=== PATIENT | male | born 1945 | race Caucasian/White ===

== ENCOUNTER → 2020-07-19 12:48 | Outpatient (CLI) | payer MEDICARE, SELFPAY ==
--- NOTE | 2020-07-19 | CA_ITS ---
APPROVED REPORT EXAM: Comprehensive 2D, Doppler, and color-flow Echocardiogram Cylinder Checker: Leann Redman CRT Ht: 130 ft 10 in Wt: 200lbs BSA: 19.90 BP: 130/70 mmHg Indications: Murmur, Obesity, Hyperlipidemia, Hypertension/HDD 2D Dimensions LVOT 1.93 cm (M/F) 1.5-2.5 M-Mode Dimensions RVDd 2.03 cm (0.9-2.6) LVDd 5.49 cm (3.5-5.7) LVDs 3.68 cm (3.5-5.7) IVSd 1.46 cm (0.6-1.1) PWd 0.82 cm (0.6-1.1) EF (Teich) 60.90% FS 33.00% EDV (Teich) 146.80 mL ESV (Teich) 57.40 mL LV Diastology E/A Ratio 0.54 Mitral Valve MV A Velocity 79.00 (40-130 cm/s) Left Ventricle Left atrium is mildly enlarged, left ventricle is normal size, mild concentric left ventricular hypertrophy, visually estimated ejection fraction 55% with no regional wall motion abnormality, grade 1 diastolic dysfunction seen without tissue Doppler evidence of raise left atrial pressure. Right Ventricle Right atrium and right ventricular normal size and contractility. Aortic Valve Aortic valve is minimally thickened and fibrosed, there is no aortic stenosis or aortic insufficiency. Mitral Valve Mitral valve is grossly normal, there is mild mitral regurgitation. Tricuspid Valve Tricuspid valve grossly normal, there is mild tricuspid regurgitation, tricuspid regurgitation jet velocity is inadequate for calculation of the right ventricular systolic pressure. Pulmonic Valve Pulmonic valve is poorly visualized. Great Vessels Aortic root is normal size. Pericardium No significant pericardial effusion noted. Conclusion 1. Mildly enlarged left atrium, normal left ventricular size, mild concentric left ventricular hypertrophy, visually estimated ejection fraction 55% with no regional wall motion abnormality, grade 1 diastolic dysfunction seen without tissue Doppler evidence of raise left atrial pressure. 2. Mild mitral and tricuspid regurgitation. 3. No significant pericardial effusion noted. Electronically signed by : Joshua Lindsey, 07/20/2020 10:07:52
== END ==
PROVIDERS: PCP Family Medicine; Visit Provider Family Medicine
DX: R01.1 Cardiac murmur, unspecified (principal); I10 Essential (primary) hypertension
CPT/HCPCS: 93306

== ENCOUNTER → 2021-07-30 14:17 | Outpatient (CLI) | payer MEDICARE, SELFPAY ==
--- NOTE | 2021-07-30 14:32 | CA_ITS ---
APPROVED REPORT EXAM: Comprehensive 2D, Doppler, and color-flow Echocardiogram Stereotype Finisher: Vibha Nolasco RDCS Ht: 5 ft 10 in Wt: 200lbs BSA: 2.09 BP: 120/65 mmHg Indications: MVR,CAD 2D Dimensions LVOT 1.76 cm (M/F) 1.5-2.5 LA Volume 55.70 mL LA Volume Index 26.70 mL/m2 (M/F) 16-34 M-Mode Dimensions RVDd 3.48 cm (0.9-2.6) LA Diam 3.79 cm (1.9-4.0) LVDd 5.18 cm (3.5-5.7) Ao Diam 3.66 cm (2.0-3.7) LVDs 3.61 cm (3.5-5.7) IVSd 0.98 cm (0.6-1.1) PWd 0.85 cm (0.6-1.1) EF (Teich) 57.30% FS 30.30% EDV (Teich) 128.40 mL ESV (Teich) 54.80 mL LV Diastology E Decel Time 290.00 (160-240 msec) E/A Ratio 0.68 MED E' 5.40 (< 7 cm/sec) E'/MED E' Ratio 8.63 (>14) LAT E' 6.60 (<10 cm/sec) E/LAT E' Ratio 7.06 (>14) Mitral Valve MV E Max Zachary. 47.00 (40-130 cm/s) MV A Velocity 69.00 (40-130 cm/s) E/A Ratio 0.68 MV Decel. Time 290.00 (160-240 ms) MV PHT 85.00 ms Tricuspid Valve TR P. Velocity 239.00 cm/s RAP Estimate 10.00 mmHg RVSP 32.80 mmHg Left Ventricle Left atrium is mildly enlarged, left ventricle is normal size, mild concentric left ventricular hypertrophy, visually estimated ejection fraction 55% with no regional wall motion abnormality, grade 1 diastolic dysfunction seen without tissue Doppler evidence of raise left atrial pressure. Right Ventricle Right atrium and right ventricle are mildly enlarged with normal contractility. Aortic Valve Aortic valve is minimally thickened and fibrosed, there is no aortic stenosis or aortic insufficiency. Mitral Valve Mitral valve appears to be grossly normal, there does not appear to be mitral valve ring or prosthetic valve, there is no mitral stenosis, there is trace mitral regurgitation. Tricuspid Valve Tricuspid valve is grossly normal, there is mild tricuspid regurgitation, calculated right ventricular systolic pressure 33 mmHg. Pulmonic Valve Pulmonic valve is poorly visualized. Great Vessels Aortic root is normal size. Inferior vena cava is poorly visualized. Conclusion 1. Mild biatrial enlargement, normal left ventricular size, mild concentric left ventricular hypertrophy, visually estimated ejection fraction 55% with no regional wall motion abnormality, grade 1 diastolic dysfunction seen without tissue Doppler evidence of raise left atrial pressure. 2. Mildly enlarged right ventricle with normal contractility. 3. Trace mitral and mild tricuspid regurgitation, calculated right ventricular systolic pressure is 33 mmHg. 4. No significant pericardial effusion noted. 5. Inferior vena cava is poorly visualized. Electronically signed by : Joshua Lindsey MD 07/31/2021 06:20:06
== END ==
PROVIDERS: PCP Family Medicine; Visit Provider Family Medicine
DX: I34.0 Nonrheumatic mitral (valve) insufficiency (principal)
CPT/HCPCS: 93306